=== PATIENT | male | born 1980 | race Caucasian/White ===

== ENCOUNTER 2021-12-10 11:32 | Emergency (ER) | payer MEDICAID ==
[~2021-12-10] VITALS: Ht 170.2 cm; Wt 93.2 kg
[2021-12-10 12:19] LABS: BASOPHILS % (AUTO) 0.7 % (0-1); EOSINOPHILS # (AUTO) 0.3 X10'3 (0-0.9); MONOCYTES # (AUTO) 0.7 X10'3 (0-0.9); NEUTROPHILS # (AUTO) 3.5 X10'3 (1.8-7.7)
[2021-12-10 12:21] LABS: EOSINOPHILS % (AUTO) 4.4 % (0-6); HEMATOCRIT 44.3 % (42.0-52.0); HEMOGLOBIN 15.4 g/dl (14.0-17.9); LYMPHOCYTES # (AUTO) 2.8 X10'3 (1.1-4.8); MEAN CORPUSCULAR HEMOGLOBIN 29.2 PG (27.0-31.0); MEAN CORPUSCULAR HGB CONC 34.7 g/dL (33.0-36.5); MEAN CORPUSCULAR VOLUME 84.2 FL (78-98); MEAN PLATELET VOLUME 8.6 FL (7.4-10.4); MONOCYTES % (AUTO) 9.2 % (2-12); NEUTROPHILS % (AUTO) 47.7 % (42-75); PLATELET COUNT 185 X10'3 (140-440); RED BLOOD COUNT 5.25 X10'6 (4.70-6.10); RED CELL DISTRIBUTION WIDTH 13.9 % (11.5-14.5); WHITE BLOOD COUNT 7.3 X10'3 (4.5-11.0)
[2021-12-10 12:39] LABS: ALANINE AMINOTRANSFERASE 94 U/L (12-78); ALBUMIN 4.1 G/DL (3.4-5.0); ALBUMIN/GLOBULIN RATIO 1.1 (1.1-1.5); ALKALINE PHOSPHATASE 70 IU/L (46-116); ANION GAP 13 (8-16); ASPARTATE AMINO TRANSFERASE 35 U/L (10-37); BILIRUBIN,TOTAL 0.6 MG/DL (0.1-1.0); BLOOD UREA NITROGEN 13 MG/DL (7-18); BUN/CREATININE RATIO 12.1 (5.4-32.0); CALCIUM 9.3 MG/DL (8.5-10.1); CHLORIDE 105 MMOL/L (99-107); CREATININE 1.07 MG/DL (0.60-1.10); GLUCOSE 99 MG/DL (70-104); SODIUM 142 MMOL/L (135-145); TOTAL PROTEIN 7.9 G/DL (6.4-8.2); eGFR 77 ML/MIN
[2021-12-10] MEDS ORDERED: ALBU6.7H9 INH (12:50)
[2021-12-10 13:29] VITALS: BP 138/98
== END 2021-12-10 13:30 | disposition home or self-care (01) ==
LOC: ER 11:32
DX: R07.9 Chest pain, unspecified (principal); U09.9 Post COVID-19 condition, unspecified; K21.9 Gastro-esophageal reflux disease without esophagitis; F32.9 Major depressive disorder, single episode, unspecified; Z88.6 Allergy status to analgesic agent; Z88.5 Allergy status to narcotic agent; Z79.899 Other long term (current) drug therapy
CPT/HCPCS: 36415; 71045; 80053; 83880; 84484; 85025; 93005; 96361; 96372; 99285

== ENCOUNTER 2023-12-08 13:09 | Emergency (ER) | payer MEDICAID ==
[~2023-12-08] VITALS: Ht 170.2 cm; Wt 95.0 kg
[~2023-12-08 13:09] MED LIST: ALBU6.7H14 INH
[2023-12-08 13:11] VITALS: TEMP 98.4
[2023-12-08 13:58] LABS: BASOPHILS # (AUTO) 0.1 X10'3 (0-0.2); BASOPHILS % (AUTO) 0.3 % (0-1); EOSINOPHILS # (AUTO) 0.1 X10'3 (0-0.9); EOSINOPHILS % (AUTO) 0.4 % (0-6); HEMATOCRIT 45.4 % (42.0-52.0); HEMOGLOBIN 15.6 g/dl (14.0-17.9); LYMPHOCYTES # (AUTO) 3.9 X10'3 (1.1-4.8); LYMPHOCYTES % (AUTO) 20.9 % (21-51); MEAN CORPUSCULAR HEMOGLOBIN 29.5 PG (27.0-31.0); MEAN CORPUSCULAR HGB CONC 34.3 g/dL (33.0-36.5); MEAN CORPUSCULAR VOLUME 86.1 FL (78-98); MEAN PLATELET VOLUME 8.9 FL (7.4-10.4); MONOCYTES # (AUTO) 1.3 X10'3 (0-0.9); NEUTROPHILS # (AUTO) 13.4 X10'3 (1.8-7.7); NEUTROPHILS % (AUTO) 71.4 % (42-75); PLATELET COUNT 223 X10'3 (140-440); RED BLOOD COUNT 5.27 X10'6 (4.70-6.10); RED CELL DISTRIBUTION WIDTH 13.8 % (11.5-14.5); WHITE BLOOD COUNT 18.7 X10'3 (4.5-11.0)
[2023-12-08 14:05] LABS: ALBUMIN 3.8 G/DL (3.4-5.0); ANION GAP 13 (8-16); BLOOD UREA NITROGEN 14 MG/DL (7-18); BUN/CREATININE RATIO 10.5 (10.0-20.0); CALCIUM 9.7 MG/DL (8.5-10.1); CHLORIDE 103 MMOL/L (99-107); CREATININE 1.33 MG/DL (0.60-1.10); GLUCOSE 190 MG/DL (70-104); POTASSIUM 4.1 MMOL/L (3.5-5.1); SODIUM 138 MMOL/L (135-145); TOTAL CARBON DIOXIDE 22.4 MMOL/L (24-32); eCRCL 68 ML/MIN; eGFR 59 ML/MIN
[2023-12-08] MEDS ORDERED: ketorolac trometh. 30mg/ml inj. IV ONE (14:30)
[2023-12-08 14:56] LABS: STREP A SCREEN POSITIVE (Neg)
[2023-12-08] MEDS: ketorolac tromethamine 15mg/ml inj. IV ONE (15:27)
[2023-12-08] MEDS: normal saline 1000ML IV soln IV ONE (15:27)
[2023-12-08] MEDS: CefTRIAXone 2gm/D5W 50ml BAG 50 ML IV ONE (15:49)
[2023-12-08 15:56] VITALS: BP 138/96; PULSE 99; RESP 16; O2SAT 97
[2023-12-08] MEDS ORDERED: PENI500T2 PO (16:01)
== END 2023-12-08 16:42 | disposition home or self-care (01) ==
LOC: ER 13:10
DX: A46 Erysipelas (principal); R59.0 Localized enlarged lymph nodes; J02.0 Streptococcal pharyngitis; A49.1 Streptococcal infection, unspecified site; K21.9 Gastro-esophageal reflux disease without esophagitis; F32.A Depression, unspecified; Z88.8 Allergy status to other drugs, medicaments and biological substances; Z79.899 Other long term (current) drug therapy
CPT/HCPCS: 36415; 71045; 80048; 83605; 83735; 84145; 85025; 87040; 87502; 87503; 87880; 93005; 96365; 96375; 99285; J0696; J1885; J7030

== ENCOUNTER 2024-03-01 16:10 | Emergency (ER) | payer BC, MEDICAID ==
[~2024-03-01] VITALS: Ht 170.2 cm; Wt 90.0 kg
[2024-03-01 16:17] VITALS: TEMP 98.5
[2024-03-01 16:37] LABS: BILIRUBIN,URINE NEGATIVE (Neg); CLARITY,URINE CLEAR (Clear); COLOR,URINE YELLOW (Yellow); GLUCOSE, URINE >=1000 mg/dl (Neg); KETONES,URINE TRACE mg/dl (Neg); LEUKOCYTE ESTERASE ,URINE NEGATIVE (Neg); NITRITES, URINE NEGATIVE (Neg); OCCULT BLOOD,URINE NEGATIVE (Neg); PROTEIN,URINE NEGATIVE (Neg); UROBILINOGEN,URINE 0.2 E.U/dL (0.2-1.0)
[2024-03-01 16:44] LABS: UA COLLECTION TYPE CLN CATCH MIDSTREAM
[2024-03-01 16:46] LABS: RBC,URINE NONE SEEN /HPF (0-2); WBC,URINE 0-4 /HPF (0-4)
[2024-03-01 16:47] LABS: BACTERIA,URINE NONE SEEN /HPF (Neg); SQUAMOUS EPITHELIAL CELL,UR NONE SEEN /LPF (FEW)
[2024-03-01 16:53] LABS: BASOPHILS # (AUTO) 0.1 X10'3 (0-0.2); BASOPHILS % (AUTO) 0.9 % (0-1); EOSINOPHILS # (AUTO) 0.1 X10'3 (0-0.9); EOSINOPHILS % (AUTO) 1.8 % (0-6); HEMATOCRIT 44.6 % (42.0-52.0); HEMOGLOBIN 15.9 g/dl (14.0-17.9); LYMPHOCYTES # (AUTO) 2.5 X10'3 (1.1-4.8); LYMPHOCYTES % (AUTO) 35.4 % (21-51); MEAN CORPUSCULAR HEMOGLOBIN 30.2 PG (27.0-31.0); MEAN CORPUSCULAR HGB CONC 35.6 g/dL (33.0-36.5); MEAN CORPUSCULAR VOLUME 84.9 FL (78-98); MEAN PLATELET VOLUME 8.9 FL (7.4-10.4); MONOCYTES # (AUTO) 0.4 X10'3 (0-0.9); MONOCYTES % (AUTO) 5.4 % (2-12); NEUTROPHILS % (AUTO) 56.5 % (42-75); PLATELET COUNT 183 X10'3 (140-440); RED BLOOD COUNT 5.26 X10'6 (4.70-6.10)
[2024-03-01 17:15] LABS: ALANINE AMINOTRANSFERASE 74 U/L (12-78); ALBUMIN 3.8 G/DL (3.4-5.0); ALKALINE PHOSPHATASE 80 IU/L (46-116); ANION GAP 10 (8-16); ASPARTATE AMINO TRANSFERASE 33 U/L (10-37); BILIRUBIN,TOTAL 0.7 MG/DL (0.1-1.0); BLOOD UREA NITROGEN 10 MG/DL (7-18); BUN/CREATININE RATIO 8.8 (10.0-20.0); CALCIUM 8.8 MG/DL (8.5-10.1); CHLORIDE 101 MMOL/L (99-107); CREATININE 1.13 MG/DL (0.60-1.10); GLUCOSE 339 MG/DL (70-104); LIPASE 51 U/L (16-77); POTASSIUM 3.7 MMOL/L (3.5-5.1); SODIUM 135 MMOL/L (135-145); TOTAL CARBON DIOXIDE 23.8 MMOL/L (24-32); TOTAL PROTEIN 7.6 G/DL (6.4-8.2); eCRCL 80 ML/MIN; eGFR 71 ML/MIN
[2024-03-01] MEDS ORDERED: METF-900 PO (17:29)
[2024-03-01 17:36] VITALS: BP 121/80; PULSE 78; RESP 15; O2SAT 98
== END 2024-03-01 17:45 | disposition home or self-care (01) ==
LOC: ER 16:11 → UNDOADMIN 21:14 → ED HOLD 21:14
DX: E11.65 Type 2 diabetes mellitus with hyperglycemia (principal); K21.9 Gastro-esophageal reflux disease without esophagitis; Z88.5 Allergy status to narcotic agent; Z88.6 Allergy status to analgesic agent; Z79.899 Other long term (current) drug therapy
CPT/HCPCS: 36415; 80053; 81001; 83690; 85025; 99283

== ENCOUNTER 2024-06-06 11:20 | Emergency (ER) | payer BC ==
[~2024-06-06] VITALS: Ht 170.2 cm; Wt 73.2 kg
[2024-06-06 11:36] VITALS: TEMP 97.9
[2024-06-06 13:17] LABS: BASOPHILS % (AUTO) 0.7 % (0-1); EOSINOPHILS # (AUTO) 0.1 X10'3 (0-0.9); HEMATOCRIT 43.7 % (42.0-52.0); HEMOGLOBIN 15.1 g/dl (14.0-17.9); LYMPHOCYTES # (AUTO) 2.2 X10'3 (1.1-4.8); LYMPHOCYTES % (AUTO) 37.5 % (21-51); MEAN CORPUSCULAR HEMOGLOBIN 30.4 PG (27.0-31.0); MEAN CORPUSCULAR HGB CONC 34.5 g/dL (33.0-36.5); MEAN CORPUSCULAR VOLUME 88.1 FL (78-98); MEAN PLATELET VOLUME 9.8 FL (7.4-10.4); MONOCYTES # (AUTO) 0.4 X10'3 (0-0.9); MONOCYTES % (AUTO) 6.7 % (2-12); NEUTROPHILS # (AUTO) 3.2 X10'3 (1.8-7.7); NEUTROPHILS % (AUTO) 53.1 % (42-75); PLATELET COUNT 170 X10'3 (140-440); RED BLOOD COUNT 4.96 X10'6 (4.70-6.10)
[2024-06-06 13:20] LABS: ALANINE AMINOTRANSFERASE 33 U/L (12-78); ALBUMIN 3.8 G/DL (3.4-5.0); ALBUMIN/GLOBULIN RATIO 1.1 (1.1-1.5); ALKALINE PHOSPHATASE 88 IU/L (46-116); ANION GAP 7 (8-16); ASPARTATE AMINO TRANSFERASE 16 U/L (10-37); BILIRUBIN,TOTAL 0.9 MG/DL (0.1-1.0); BLOOD UREA NITROGEN 13 MG/DL (7-18); BUN/CREATININE RATIO 11.5 (10.0-20.0); CALCIUM 8.9 MG/DL (8.5-10.1); CHLORIDE 100 MMOL/L (99-107); CREATININE 1.13 MG/DL (0.60-1.10); LIPASE 51 U/L (16-77); POTASSIUM 4.1 MMOL/L (3.5-5.1); SODIUM 134 MMOL/L (135-145); TOTAL CARBON DIOXIDE 26.8 MMOL/L (24-32); TOTAL PROTEIN 7.2 G/DL (6.4-8.2); eCRCL 80 ML/MIN; eGFR 71 ML/MIN
[2024-06-06] MEDS: insulin regular, human 10 units/0.1 ml syringe IV ONE (13:26)
[2024-06-06 13:28] LABS: GLUCOSE 462 MG/DL (70-104)
[2024-06-06 13:32] LABS: ACETONE NEGATIVE (NEGATIVE)
[2024-06-06 13:40] LABS: BILIRUBIN,URINE NEGATIVE (Neg); CLARITY,URINE CLEAR (Clear); COLOR,URINE YELLOW (Yellow); GLUCOSE, URINE >=1000 mg/dl (Neg); KETONES,URINE 15 mg/dl (Neg); LEUKOCYTE ESTERASE ,URINE NEGATIVE (Neg); NITRITES, URINE NEGATIVE (Neg); OCCULT BLOOD,URINE NEGATIVE (Neg); PH,URINE 6.5 (4.8-8.0); PROTEIN,URINE NEGATIVE (Neg); UROBILINOGEN,URINE 0.2 E.U/dL (0.2-1.0)
[2024-06-06 13:42] LABS: UA COLLECTION TYPE CLN CATCH MIDSTREAM
[2024-06-06 13:56] LABS: BACTERIA,URINE NONE SEEN /HPF (Neg); RBC,URINE 0-2 /HPF (0-2); SQUAMOUS EPITHELIAL CELL,UR FEW /LPF (FEW); WBC,URINE 0-4 /HPF (0-4)
[2024-06-06 14:36] VITALS: BP 132/90; PULSE 66; RESP 16; O2SAT 98
== END 2024-06-06 15:47 | disposition home or self-care (01) ==
LOC: ER 11:20
DX: E11.65 Type 2 diabetes mellitus with hyperglycemia (principal); I10 Essential (primary) hypertension; K21.9 Gastro-esophageal reflux disease without esophagitis; F32.A Depression, unspecified; Z88.8 Allergy status to other drugs, medicaments and biological substances; Z79.899 Other long term (current) drug therapy; Z90.49 Acquired absence of other specified parts of digestive tract; Z98.890 Other specified postprocedural states
CPT/HCPCS: 36415; 80053; 81001; 82009; 82948; 83690; 85025; 96374; 99284; J1815; J7030; 96372

== ENCOUNTER 2025-04-22 09:18 | Emergency (ER) | payer BC ==
[~2025-04-22] VITALS: Ht 170.2 cm; Wt 93.8 kg
[2025-04-22 10:07] LABS: MEAN PLATELET VOLUME 8.7 FL (7.4-10.4); RED CELL DISTRIBUTION WIDTH 14.0 % (11.5-14.5)
[2025-04-22 10:27] LABS: TOTAL CARBON DIOXIDE 22.0 MMOL/L (24-32)
[2025-04-22 10:30] LABS: CREATININE 1.32 MG/DL (0.60-1.10); eCRCL 67 ML/MIN; eGFR 59 ML/MIN
[2025-04-22 10:32] LABS: LEUKOCYTE ESTERASE ,URINE NEGATIVE (Neg); NITRITES, URINE NEGATIVE (Neg); OCCULT BLOOD,URINE NEGATIVE (Neg)
[2025-04-22 10:39] LABS: UA COLLECTION TYPE VOIDED
--- NOTE | 2025-04-22 11:01 | Physician Documentation ---
History of Present Illness ~ Chief Complaint: Abdominal Pain Stated Complaint: ABDOMINAL PAIN Time Seen by MD: 10:42 Primary Medical Doctor: [facility] Mode of Arrival: EMS HPI 44-year-old male presenting with right flank pain that has been ongoing for the past week. He states that it has been coming and going but that this morning it was incredibly severe. The pain radiates from the right flank to his right upper abdomen. It caused some nausea but no vomiting. Currently it has improved to about a 6/10 but earlier it was a 10/10 in very severe. Pain does not seem to be improved or worsened by anything. Reports that he saw urgent care last week and had some labs and ultrasound done but reports that that they didn't find anything. He reports some mild constipation but states that he had a normal bowel movement earlier today. Denies any issues with his urination. Denies any fever, chills or any other associated symptoms. Medication Reconciliation Allergies: Coded Allergies: acetaminophen (Unverified Allergy, Unknown, 06/06/24) nausea hydrocodone (Unverified Allergy, Unknown, 06/06/24) nausea Scheduled Albuterol Sulfate (Proventil Hfa), 2 PUFFS INH Q6H Past Medical History Past Medical History: No Pertinent History, Hypertension, GERD, Diabetes, Depression Past Surgical History: cholecystectomy, orthopedic surgeries Alcohol Use: None Drug Use: none Lives with: Spouse Lives In: Home Occupation: employed Physical Exam Vital Signs: Temperature: 97.8, Source: Oral, Heart Rate: 71, Respiratory Rate: 16, BP: 119/82, Pulse Oximetry: 94, Weight: 93.850 Oxygen Flow Rate: 0 Physical Exam I have reviewed the triage vitals. CONST: Well developed and well nourished. In no acute distress HENT: Head Atraumatic EYES: Pupils are equal, round and reactive to light. Normal conjunctiva NECK: Normal range of motion. Supple. CARDIO: Normal rate and regular rhythm. No murmurs, rubs, or gallops. S1, S2. PULM/CHEST: No respiratory distress. Lungs clear to auscultation. No wheeze ABD: Soft and nontender. Nondistended. Bowel sounds normal. No guarding. : Right CVA tenderness MSK: No edema. No deformity. NEURO: Alert and oriented to person, place and time. Moving all extremities SKIN: Warm and dry. PSYCH: Normal mood and affect. Good eye contact. Progress Results/Orders Results/Orders Orders - LIZ MEHTA MD Ct Abdomen Pelvis (04/22/25 11:13) Completed Orders - LIZ MEHTA MD Urinalysis, Cult If Indicated (04/22/25 09:28) Cbc/Diff (04/22/25 09:28) BMP (04/22/25 09:28) Lipase (04/22/25 09:28) CMP (04/22/25 09:28) Ketorolac Trometh 30mg/Ml Vial (Toradol (04/22/25 10:55) Normal Saline 1000ml (0.9% Sodium Chlori (04/22/25 10:55) Ct Abdomen Pelvis (04/22/25 11:13) Medications Received in ER Medications (Trade) Dose Ordered Sig/Quintin Route PRN Reason Start Time Stop Time Status Last Admin Dose Admin (Toradol inj. 30mg/ml) 30 mg ONCE ONCE IV 04/22/25 10:55 04/22/25 11:05 DC 04/22/25 11:26 30 MG Sodium Chloride 1,000 ml @ 1,000 mls/hr ONCE ONCE IV 04/22/25 10:55 04/22/25 11:54 DC 04/22/25 11:25 1,000 MLS/HR Vital Signs 04/22/25 04/22/25 04/22/25 04/22/25 09:24 09:36 09:38 10:29 Temp 97.8 Pulse 66 71 Resp 18 16 18 16 B/P (MAP) 152/105 152/105 (121) 119/82 (94) Pulse Ox 96 97 94 O2 Flow Rate 0 0 04/22/25 04/22/25 04/22/25 11:26 11:31 12:24 Pulse 64 55 Resp 16 16 14 B/P (MAP) 139/85 (103) 115/57 (76) Pulse Ox 98 95 O2 Flow Rate 0 0 Laboratory Tests Test 04/22/25 09:56 04/22/25 10:13 White Blood Count 6.9 Red Blood Count 5.21 Hemoglobin 15.2 Hematocrit 43.6 Mean Corpuscular Volume 83.7 Mean Corpuscular Hemoglobin 29.1 Mean Corpuscular Hemoglobin Concent 34.8 Red Cell Distribution Width 14.0 Platelet Count 182 Mean Platelet Volume 8.7 Neutrophils (%) (Auto) 56.2 Lymphocytes (%) (Auto) 34.5 Monocytes (%) (Auto) 6.5 Eosinophils (%) (Auto) 2.1 Basophils (%) (Auto) 0.7 Neutrophils # (Auto) 3.9 Lymphocytes # (Auto) 2.4 Monocytes # (Auto) 0.5 Eosinophils # (Auto) 0.1 Basophils # (Auto) 0.1 CBC Comment Sodium Level 137 Potassium Level 4.1 Chloride Level 103 Carbon Dioxide Level 22.0 L Anion Gap 12 Blood Urea Nitrogen 13 Creatinine 1.32 H Estimated GFR/1.73 m2 59 BUN/Creatinine Ratio 9.8 L Glucose Level 205 H Calcium Level 9.4 Total Bilirubin 0.9 Aspartate Amino Transf (AST/SGOT) 24 Alanine Aminotransferase (ALT/SGPT) 51 Alkaline Phosphatase 72 Total Protein 7.6 Albumin 4.1 Globulin 3.5 Albumin/Globulin Ratio 1.2 Lipase 41 Chemistry Comments Urine Specimen Description Voided Urine Color Yellow Urine Clarity Clear Urine pH 7.5 Urine Specific [place] 1.015 Urine Protein Negative Urine Glucose (UA) 100 H Urine Ketones Negative Urine Occult Blood Negative Urine Nitrite Negative Urine Bilirubin Negative Urine Urobilinogen 0.2 Urine Leukocyte Esterase Negative Urine Culture Indicated Not ind Volume Urine Centrifuged 10 ml Urine Comment EKG/XRAY/CT/US/VASC/MRI CT : Impression Exam: CT CT ABDOMEN PELVIS History: right flank pain Comparison Study: None Technique: Multidetector spiral CT of the abdomen and pelvis was performed from lung bases to pubic symphysis. Imaging was performed without IV contrast. Axial, coronal and sagittal multiplanar reformats were obtained from the axial data set by the technologist. Radiation dose : Abdomen/Pelvis: CTDIvol 24 mGy, DLP 1481 mGy*cm. Findings: Evaluation of solid organs is limited due to lack of intravenous contrast use. Lung Bases: No acute or significant lung base finding. Normal heart size. No pleural or pericardial effusion. Liver: Diffuse hepatic steatosis. Gallbladder and biliary Tree: Gallbladder is surgically absent. Spleen: Unremarkable Pancreas: The pancreas is grossly normal in appearance. Adrenal Glands: Unremarkable Kidneys: Kidneys are grossly normal without calculi or hydronephrosis. Bladder: Grossly unremarkable for degree of distention. Bowel: The stomach is grossly normal in appearance. Small bowel and colon are normal in caliber and distribution. Normal appendix is visualized in the right lower quadrant without findings of appendicitis. Ascites: Absent Lymphadenopathy: No mesenteric, retroperitoneal or periportal lymphadenopathy. Abdominal wall and Mesentery: Unremarkable. Vasculature: The visualized abdominal aorta is normal in size and caliber. Evaluation of abdominal and pelvic vessels is limited due to lack of intravenous contrast. Pelvic Organs: Unremarkable Musculoskeletal: No aggressive focal bony lesions, acute fractures or dislocation. IMPRESSION: 1. No acute abdominal or pelvic findings. No hydronephrosis or nephrolithiasis. Diffuse hepatic steatosis. Medical Decision Making Additional Comment 44-year-old male presenting with right-sided flank pain. His workup is grossly unremarkable. He does have some minimal elevation of his BUN and creatinine likely from some dehydration. CT of the abdomen and pelvis showed no nephrolithiasis or ureterolithiasis or other abnormalities. As mentioned, the remainder of his lab work was also unremarkable. Patient's symptoms resolved after he was given 1 L of IV normal saline and 30 mg of IV ketorolac. I suspect that the patient likely had a ureteral stone that he passed. At this point in time the patient is comfortable and stable. Vitals are normal. I believe he can be discharged home and advised him to drink plenty of fluids and monitor symptoms. Should they recur he was advised to return immediately to the emergency department. Departure Disposition: 01 HOME / SELF CARE / HOMELESS Impression: Primary Impression: Right flank pain Condition: Improved Discharge Instructions: Kidney Stones Additional Instructions: Monitor her symptoms for recurrence. Drink plenty of fluids. Follow up with your primary care physician in the next 2-3 days. Return to the ED with any recurring and worsening symptoms. Referrals: NO PRIMARY CARE PROVIDER (PCP) Signature Scribe Signature: 1 Attestation: 1 LIZ MEHTA MD Apr 22, 2025 11:01
[2025-04-22] MEDS: normal saline 1000ml 1,000 ML IV ONE (11:25)
[2025-04-22] MEDS: ketorolac trometh 30MG/ML vial 30 MG/ML VIAL IV ONE (11:26)
--- NOTE | 2025-04-22 11:49 | RADIOLOGY REPORT ---
Exam: CT CT ABDOMEN PELVIS History: right flank pain Comparison Study: None Technique: Multidetector spiral CT of the abdomen and pelvis was performed from lung bases to pubic symphysis. Imaging was performed without IV contrast. Axial, coronal and sagittal multiplanar reform ats were obtained from the axial data set by the technologist. Radiation dose : Abdomen/Pelvis: CTDIvol 24 mGy, DLP 1481 mGy*cm. Findings: Evaluation of solid organs is limited due to lack of intravenous contrast use. Lung Bases: No acute or significant lung base finding. Normal heart size. No pleural or pericardial effusion. Liver: Diffuse hepatic steatosis. Gallbladder and biliary Tree: Gallbladder is surgically absent. Spleen: Unremarkable Pancreas: The pancreas is grossly normal in appearance. Adrenal Glands: Unremarkable Kidneys: Kidneys are grossly normal without calculi or hydronephrosis. Bladder: Grossly unremarkable for degree of distention. Bowel: The stomach is grossly normal in appearance. Small bowel and colon are normal in caliber and d istribution. Normal appendix is visualized in the right lower quadrant without findings of appendicit is. Ascites: Absent Lymphadenopathy: No mesenteric, retroperitoneal or periportal lymphadenopathy. Abdominal wall and Mesentery: Unremarkable. Vasculature: The visualized abdominal aorta is normal in size and caliber. Evaluation of abdominal a nd pelvic vessels is limited due to lack of intravenous contrast. Pelvic Organs: Unremarkable Musculoskeletal: No aggressive focal bony lesions, acute fractures or dislocation. IMPRESSION: 1. No acute abdominal or pelvic findings. No hydronephrosis or nephrolithiasis. Diffuse hepatic stea tosis. Radiation optimization: All CT scans at this facility use at least one of these dose optimization lai hniques: Automated exposure control mA and/or kV adjustment per patient size (includes targeted exams where dose is matched to clinical indication) or iterative reconstruction. HS:Y
[2025-04-22 13:41] VITALS: BP 144/84; PULSE 55; RESP 12; TEMP 97.8; O2SAT 96
== END 2025-04-22 13:40 | disposition home or self-care (01) ==
LOC: ER 09:19
DX: R10.9 Unspecified abdominal pain (principal); R11.0 Nausea; K59.00 Constipation, unspecified; E11.9 Type 2 diabetes mellitus without complications; Z88.5 Allergy status to narcotic agent; Z90.49 Acquired absence of other specified parts of digestive tract; Z79.899 Other long term (current) drug therapy
CPT/HCPCS: 36415; 74176; 80053; 81003; 83690; 85025; 96361; 96374; 99285; J1885; J7030